=== PATIENT | female | born 1975 | race Two or more races ===

== ENCOUNTER 2023-12-20 09:45 | Outpatient (AMB) | payer MEDICAID, SELFPAY ==
[2023-12-20 10:10] VITALS: BP 148/81; PULSE 79; RESP 18; TEMP 36.2; O2SAT 95; BMI 37.8
--- NOTE | 2023-12-20 10:10 | ORTHONT_ITS ---
Vital signs 12/20/23 10:10 Height 1.6 m Height Method Stated Weight 96.785 kg Weight Measurement Method Standing Scale BMI 37.8 BP 148/81 H Blood Pressure Source Automatic Cuff Blood Pressure Location Right Upper Arm Position Sitting Respiration 18 Pulse 79 Pulse Source Monitor Temp 97.2 F Temp Source Temporal Artery Scan Pulse Oximetry (%) 95 Oxygen Delivery Method Room Air Med/Allergies Allergies & Medications Allergies No Known Allergies Allergy (Verified 12/20/23 10:11) Medication Reconciliation Unobtainable 08/23/23 [History Confirmed 12/20/23] Subjective Visit Visit for: follow up visit and knee Immunization / Flu Flu Vaccine in the Last 12 Months: No Flu Vaccine Exclusion Criteria: No Exclusion Criteria History of Present Illness Chief complaint: FOLLOW UP Date of injury / onset of symptoms: APRIL SYMPTOMS WORSEN Patient is a 48-year-old female with 4 years of right knee pain. She also has a history of a left unicompartmental total knee replacement with Dr. Moody. She still has persistent pain but the pain is improved somewhat with the surgery. She has had injections in her right knee as well as anti-inflammatories. She has also had hyaluronic acid injections Personal History Occupation: UNEMPLOYED Red flag PMH: none Pain Pain level (0-10): 8 Pain duration: ALL DAY Pain location: inside (medial), outside (lateral), anterior and posterior Pain quality: sharp, dull and aching Pain timing: increases with activity Associated signs & symptoms: stiffness Ambulatory data Ambulatory device: none Treatments Improvement with previous injections: No Improvement with PT: No Improvement with NSAIDS: n/a Review of Systems Review of Systems: All systems negative unless otherwise noted in HPI. Exam Exam Patient is in no acute distress and is cooperative with the examination today. Breathing is nonlabored. Patient has a normal mood and affect. Bilateral extremities were evaluated and demonstrates sensation intact to light touch. Palpable pedal pulses are present. No significant edema is present. Bilateral hips were examined. The patient has no pain with log roll of the hips. Internal rotation to 30 degrees and external rotation to 30 degrees is painless. Negative FADIR. Left knee demonstrates a midline incision. Knee feels stable varus and valgus are still to be translation. Range of motion 0 to 110 degrees The right knee was also examined. The right knee is in [varus] alignment. Range of motion from [0-115] degrees. Knee is stable to varus and valgus as well as AP translation with <5mm. Patient has a [negative] McMurrays. There is [no] pain wi th patellofemoral compression and [no] crepitus noted. The knee is [tender] to palpation [medially]. Right knee x-rays demonstrate complete joint space medially with varus arthritis and varus deformity. There are osteophytes present X-rays also demonstrate a unicompartmental arthroplasty. It is in varus. There is also lateral compartment arthritis Assessment and Plan Problem List (1) Degenerative arthritis of knee, bilateral: Status: Acute Plan: Patient is a 48-year-old female with bilateral knee pain and bilateral knee arthritis. X-rays from 4 years ago demonstrate severe arthritis of the right knee. She also has a unicompartmental knee With arthritis She has already tried injections, anti-inflammatories, but is not tried physical therapy. We discussed that we could try physical therapy for 1 round. If this does not work we will likely have to talk about surgery. I would do a total knee replacement not a year any given her prior history of DVTs and because she has diffuse pain in her knee (2) Bilateral knee pain: Status: Acute Office Procedures GNS Level of Care Nursing/Assessment Patient Status: Established Patient Nursing Assessment/Reassesment: Medication Reconciliation, Update PMH in EMR and Vital Signs Coordination of Care: Complex Care and Chronic Disease 1-5, Education Complex Pt/Fam, Consent,records obtained, informed consent, Results/Orders obtained and Staff clarify orders Special Needs: Language special needs Established Patient Charge Established Patient Point Assignment: 95 Established Patient Point Charge: EP Level 3 (80-115) Past Medical History Past Medical History Have you ever been diagnosed with any of the following: Neurological Problems Seizures: No Cardiology Problems Congestive Heart Failure: No Edema: No Cellulitis: No Hypertension: Yes (TAKES LISINOPRIL) Varicose Veins: Yes (non diagnosed) Respiratory Problems Chronic Obstructive Pulmonary Disease (COPD): No Tuberculosis: No Pulmonary Embolism: No Sleep Apnea: No Smoking: No Smoking Exposure: No Tobacco Use: No Clubbing: No Exposure to Respiratory Irritants: No Intubation: No Stomache/Intestinal Problems Hepatitis: No Genital/Urinary Problems Renal Disease: No Reproductive Problems Pelvic Inflammatory Disease: No Previous Pregnancies: Yes (X 5) Musculoskeletal Problems Arthritis: Yes Endocrine Problems Diabetes Mellitus Type 1: No Diabetes Mellitus Type 2: No Hypothyroidism: Yes (TAKES LEVOTHYROXINE) Blood Problems Anemia: No Leukemia: No Hemophilia: No Thalassemia: No Sickle Cell Disease: No Clotting Problems: No Other Problems Hospitalization: No Shingles: No Falls: No Blood Transfusions: No Blood Transfusion Reaction: No Anesthesia Reactions: No Organ Transplant: No Chemotherapy: No Radiation Therapy: No MRSA: No Chicken Pox: Yes Cancer: No Surgical History Pacemaker: No
== END 2023-12-20 10:30 | disposition home or self-care (01) ==
LOC: HODSRG 09:45
PROVIDERS: PCP Nurse Practitioner Family; Referring Provider Nurse Practitioner Family; Supervising Provider Orthopaedic Surgery Adult Reconstructive Orthopaedic Surgery; Visit Provider Orthopaedic Surgery Adult Reconstructive Orthopaedic Surgery
DX: M17.0 Bilateral primary osteoarthritis of knee (principal); M25.561 Pain in right knee; M25.562 Pain in left knee; Z86.718 Personal history of other venous thrombosis and embolism; I10 Essential (primary) hypertension
CPT/HCPCS: 99213; G0463

== ENCOUNTER 2024-07-05 08:53 | Outpatient (AMB) | payer MEDICAID, SELFPAY ==
[2024-07-05 09:10] VITALS: BP 134/84; PULSE 76; RESP 18; TEMP 36.3; O2SAT 96; BMI 37.3
--- NOTE | 2024-07-05 09:10 | ORTHONT_ITS ---
Vital signs 07/05/24 09:10 Height 1.6 m Height Method Stated Weight 95.453 kg Weight Measurement Method Standing Scale BMI 37.3 BP 134/84 H Blood Pressure Source Automatic Cuff Blood Pressure Location Right Upper Arm Position Sitting Respiration 18 Pulse 76 Pulse Source Monitor Temp 97.3 F Temp Source Temporal Artery Scan Pulse Oximetry (%) 96 Oxygen Delivery Method Room Air Med/Allergies Allergies & Medications Allergies No Known Allergies Allergy (Verified 07/05/24 09:11) Medication Reconciliation Unobtainable 08/23/23 [History Confirmed 07/05/24] Exam Exam Patient is in no acute distress and is cooperative with the examination today. Breathing is nonlabored. Patient has a normal mood and affect. Bilateral extremities were evaluated and demonstrates sensation intact to light touch. Palpable pedal pulses are present. No significant edema is present. Bilateral hips were examined. The patient has no pain with log roll of the hips. Internal rotation to 30 degrees and external rotation to 30 degrees is painless. Negative FADIR. Left knee demonstrates a midline incision. Knee feels stable varus and valgus are still to be translation. Range of motion 0 to 110 degrees The right knee was also examined. The right knee is in [varus] alignment. Range of motion from [0-115] degrees. Knee is stable to varus and valgus as well as AP translation with <5mm. Patient has a [negative] McMurrays. There is [no] pain with patellofemoral compression and [no] crepitus noted. The knee is [tender] to palpation [medially]. Right knee x-rays demonstrate complete joint space medially with varus arthritis and varus deformity. There are osteophytes present X-rays also demonstrate a unicompartmental arthroplasty. It is in varus. There is also lateral compartment arthritis Assessment and Plan Problem List (1) Degenerative arthritis of knee, bilateral: Status: Acute Plan: Patient is a 48-year-old female with bilateral knee pain and bilateral knee arth ritis. X-rays from 4 years ago demonstrate severe arthritis of the right knee. She has failed significant conservative treatment occluding injections, anti- inflammatories, and physical therapy. We thus discussed total knee replacement as a reasonable option The nature and purpose of the total knee replacement, alternative method(s) of treatment, the material risks involved, and the possibility of complications were fully explained to the patient. The patient does NOT have any of the following contraindications to TKA: - Active infection of the knee joint, OR - Active systemic bacteremia, OR - Active skin infection or open wound at surgical site, OR - Neuropathic arthritis, OR - Severe, rapidly progressive neurological disease, OR - Severe medical condition that makes risks of surgery outweigh the potential benefit The patient was told the most common risks and complications associated with a total knee replacement include, but are not limited to: blood clots in the leg, fatal pulmonary embolism, dislocation of the prosthesis, intraoperative and postoperative fractures of the femur or tibia, infection, failure of the prosthesis or grafting materials, complications from anesthesia, reactions to blood transfusions, postoperative leg length inequality, instability of the knee replacement, nerve damage or injury, vascular injury, delayed wound healing, infection, other injury or even . In addition, there are risks associated with anesthesia given during this operation. Also, the patient was told that after undergoing a total knee replacement there may still be persistent pain or disability. The patient was informed that the success of this operation in part depends upon the mechanical devices which are going to be implanted and that these devices can fail or malfunction, and may need to be repaired or replaced and there are no guarantees as to the longevity of this device or its parts and that it or its parts could fail prematurely. The patient was also notified that during the course of surgery, there may be a need to use bone graft from donors, and that any bone graft used will be carefully screened for communicable diseases, including AIDS, hepatitis, Noah-Creutzfeldt, or other diseases, but despite the screening procedures, there is a small chance that they could contract one of these diseases. Finally, the patient was asked to follow completely and fully with all advice and recommended treatments, and that recovery and ultimate outcome are affected by their compliance with recommended treatment. We discussed the risks, benefits and treatment alternatives, and the patient is interested in proceeding with surgery. We will try to set this up as expeditiously as possible. 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 ) Established Patient Charge Established Patient Point Assignment: 90 Established Patient Point Charge: EP Level 3 (80-115) MA Intake Visit Data Collection New Patient or Established: Established Patient (seen at [facility] within 3 years) Reason for Visit:: LEFT KNEE PAIN Seen by Clinical Staff ONLY (RN/MA): No J2E[employer] Application Developer Required: Yes PCP or OBGYN visit in last 3 months: Yes Hx Now: No Do You Feel Safe at Home: Yes Authorities Contacted: N/A Questionairres Past Medical History Past Medical History Have you ever been diagnosed with any of the following: Neurological Problems Seizures: No Cardiology Problems Congestive Heart Failure: No Edema: No Cellulitis: No Hypertension: Yes (TAKES LISINOPRIL) Varicose Veins: Yes (non diagnosed) Respiratory Problems Chronic Obstructive Pulmonary Disease (COPD): No Tuberculosis: No Pulmonary Embolism: No Sleep Apnea: No Smoking: No Smoking Exposure: No Tobacco Use: No Clubbing: No Exposure to Respiratory Irritants: No Intubation: No Stomache/Intestinal Problems Hepatitis: No Genital/Urinary Problems Renal Disease: No Reproductive Problems Pelvic Inflammatory Disease: No Previous Pregnancies: Yes (X 5) Musculoskeletal Problems Arthritis: Yes Endocrine Problems Diabetes Mellitus Type 1: No Diabetes Mellitus Type 2: No Hypothyroidism: Yes (TAKES LEVOTHYROXINE) Blood Problems Anemia: No Leukemia: No Hemophilia: No Thalassemia: No Sickle Cell Disease: No Clotting Problems: No Other Problems Hospitalization: No Shingles: No Falls: No Blood Transfusions: No Blood Transfusion Reaction: No Anesthesia Reactions: No Organ Transplant: No Chemotherapy: No Radiation Therapy: No MRSA: No Chicken Pox: Yes Cancer: No Surgical History Pacemaker: No Subjective Visit Visit for: follow up visit and knee (LEFT KNEE) Immunization / Flu Flu Vaccine in the Last 12 Months: No Flu Vaccine Exclusion Criteria: Refused by Patient History of Present Illness Chief complaint: right knee pain Patient is a 48-year-old female with 4 years of right knee pain. She also has a history of a left unicompartmental total knee replacement with Dr. Moody. She still has persistent pain but the pain is improved somewhat with the surgery. She has had injections in her right knee as well as anti-inflammatories. She has also had hyaluronic acid injections. I have not seen her in 6 months and she reports the right knee pain is miserable. She has failed conservative treatment including weight loss, injections, and anti-inflammatories. Her surgery was previously postponed as she had to get workup for her liver. She was found to have fatty liver disease. She has no history of blood clots in the leg. Personal History Red flag PMH: none Pain Pain level (0-10): 7 Pain duration: 1 YEAR Pain location: anterior Pain quality: burning and tingling Pain timing: night and increases with activity Associated signs & symptoms: stiffness Ambulatory data Ambulatory device: none Walking distance (minutes): 1 Treatments Number of previous injections: 6 Improvement with previous injections: No Number of Physical Therapy sessions: 0 Improvement with NSAIDS: n/a Review of Systems Review of Systems: All systems negative unless otherwise noted in HPI.
== END 2024-07-05 09:28 | disposition home or self-care (01) ==
PROVIDERS: PCP Nurse Practitioner Family; Referring Provider Nurse Practitioner Family; Supervising Provider Orthopaedic Surgery Adult Reconstructive Orthopaedic Surgery; Visit Provider Orthopaedic Surgery Adult Reconstructive Orthopaedic Surgery
DX: M17.0 Bilateral primary osteoarthritis of knee (principal); M25.561 Pain in right knee; M25.562 Pain in left knee; I10 Essential (primary) hypertension; E03.9 Hypothyroidism, unspecified; K76.0 Fatty (change of) liver, not elsewhere classified
CPT/HCPCS: 99213; G0463

== ENCOUNTER → 2024-08-02 | Outpatient (CLI) | payer MEDICAID, SELFPAY ==
[2024-08-02 16:26] LABS: HCG Qualitative,Urine Negative
== END | disposition home or self-care (01) ==
PROVIDERS: PCP Nurse Practitioner Family; Referring Provider Orthopaedic Surgery Adult Reconstructive Orthopaedic Surgery; Visit Provider Orthopaedic Surgery Adult Reconstructive Orthopaedic Surgery
DX: Z32.00 Encounter for pregnancy test, result unknown (principal)
CPT/HCPCS: 81025

== ENCOUNTER → 2024-08-03 | Outpatient (CLI) | payer MEDICAID, SELFPAY ==
--- NOTE | 2024-08-03 10:31 | XR_ITS ---
Examination: CT right lower extremity, without contrast. 2-D sagittal reconstructions. 2-D coronal reconstructions. 3-D reconstructions. Date and time of exam:August 03, 2024 1049 hours INDICATIONS: Diagnosis right knee unilateral osteoarthritis, right knee pain several years CTDI: vol (mGy):32.28 DLP: (mGycm):1085 Technique: Multiple 1.25 mm axial sections of the right lower extremity without intravenous contrast have been obtained. 2-D sagittal and coronal reconstructions have been obtained. 3-D reconstructions have been obtained. Low dose protocols were performed. One or more of the following dose reduction techniques were used; automated exposure control, adjustment of the mA and/or KV according to patient size, use of iterative reconstruction technique. Findings: Moderate osteopenia Moderate narrowing hip joints bilaterally Severe narrowing medial joint space right knee Significant osteoarthritis lateral patellofemoral joints No fractures IMPRESSION: Severe narrowing medial joint space right knee Significant osteoarthritis lateral patellofemoral joints right knee
== END | disposition home or self-care (01) ==
PROVIDERS: PCP Nurse Practitioner Family; Referring Provider Orthopaedic Surgery Adult Reconstructive Orthopaedic Surgery; Visit Provider Orthopaedic Surgery Adult Reconstructive Orthopaedic Surgery
DX: M17.11 Unilateral primary osteoarthritis, right knee (principal)
CPT/HCPCS: 73700

== ENCOUNTER 2024-08-13 05:35 | Day surgery (SDC) | payer MEDICAID, SELFPAY ==
[2024-08-10 09:49] VITALS: BMI 37.3
[2024-08-10 10:59] LABS: Basophils # (Auto) 0.1 Thou/mm3 (0.0-0.2); Basophils % (Auto) 1 % (0-2.5); Eosinophils # (Auto) 0.3 Thou/mm3 (0.0-0.5); Eosinophils % (Auto) 3 % (0-10); HCG Qualitative,Urine Negative; Hematocrit 39.4 % (36.0-46.0); Hemoglobin 13.1 g/dL (12.0-16.0); Immature Granulocytes % (Auto) 1 % (0-0); Immature Granulocytes Auto 0.05 Thou/mm3 (0.00-0.00); Lymphocytes # (Auto) 2.3 Thou/mm3 (1.0-4.8); Lymphocytes % (Auto) 24 % (10-50); Mean Corpuscular HGB Conc 33.2 g/dl (31.0-37.0); Mean Corpuscular Hemoglobin 28.1 pg (25.0-35.0); Mean Corpuscular Volume 85 fL (80-100); Monocytes # (Auto) 0.8 Thou/mm3 (0.0-0.8); Monocytes % (Auto) 8 % (0-12); Neutrophils # (Auto) 6.1 Thou/mm3 (1.8-7.7); Neutrophils % (Auto) 63 % (37-80); Nucleated Red Blood Cell % 0 /100 WBC (0); Platelet Count 318 Thou/mm3 (140-440); RDW Standard Deviation 42.8 fL (36.4-46.3); Red Blood Count 4.66 Miln/mm3 (4.00-5.20); White Blood Count 9.6 Thou/mm3 (3.6-11.0)
[2024-08-10 11:08] LABS: Partial Thromboplastin Time 26.4 Seconds (22.0-36.0); Prothrombin Time 11.2 Seconds (9.0-12.2)
[2024-08-10 11:11] LABS: Alanine Aminotransferase 56 U/L (10-49); Albumin, Serum 4.6 gm/dL (3.5-5.0); Albumin/Globulin Ratio 1.8 (1.2-2.2); Alkaline Phosphatase 59 U/L (46-116); Anion Gap 6 (7-16); Aspartate Amino Transferase 46 U/L (0-34); BUN/Creatinine Ratio 19 Ratio (12-20); Bilirubin,Total 0.6 mg/dL (0.3-1.2); Blood Urea Nitrogen 13 mg/dL (9-23); Calcium 9.2 mg/dL (8.3-10.6); Calcium (Corrected) 9.2 mg/dL (8.5-10.1); Carbon Dioxide 28.6 mMol/L (20.0-31.0); Chloride 103 mMol/L (98-107); Creatinine (Component) 0.7 mg/dL (0.6-1.3); Estimated Creatinine Clearance 104.6 mL/min (>60); Globulin 2.5 gm/dL (2.3-3.5); Glucose 139 mg/dL (74-106); Osmolality,Calculated 277 (275-295); Potassium 4.1 mMol/L (3.4-5.1); Sodium 138 mMol/L (136-145); Total Protein 7.1 gm/dL (5.7-8.2); eGFR > 60 See Note
[2024-08-13] VITALS (16 sets, daily range): BP systolic 123–155; BP diastolic 49–90; PULSE 70–93; RESP 12–19; TEMP 36.2–36.9; O2SAT 93–100; BMI 37.6; BMI 13.0
[2024-08-13] MEDS: PREGABALIN 75 MG CAPSULE PO (06:32)
[2024-08-13] MEDS: ACETAMINOPHEN 325 MG TABLET 650 MG PO (06:32)
[2024-08-13] MEDS: RINGERS LACTATED 1000 ML 1,000 ML 20 ML IV (06:33)
[2024-08-13] MEDS: MELOXICAM 7.5 MG TABLET PO (06:33)
--- NOTE | 2024-08-13 07:30 | SUR.PREOP ---
Patient expressed gratitude for prayer before their procedure.
--- NOTE | 2024-08-13 09:18 | XR_ITS ---
Examination: Right knee 2 views Technique : AP lateral right knee 2 views Date and time: August 13, 2024 1026 hours INDICATIONS: Postop knee replacement FINDINGS: Total right knee arthroplasty. Satisfactory alignment Moderate osteopenia IMPRESSION: Total right knee arthroplasty with satisfactory alignment
--- NOTE | 2024-08-13 09:19 | ESOP_ITS ---
Date of Procedure 08/13/24 Pre Op Diagnosis right knee osteoarthritis Post Op Diagnosis right knee osteoarthritis Procedure right total knee replacement wilfrido Findings full thickness cartilage loss and osteophytes Procedure Description Indication: The patient is a 49 year old who has a long history of right knee pain. X-rays show degenerative arthritis involving the knee. Over the past several years the patient has had increasing pain, progressive limitation in function. He has failed conservative measures including activity modification, physical therapy, injections, anti-inflammatories, and assistive devices. After a lengthy discussion of the risks and benefits, the patient presents now for total knee replacement. The nature and purpose of the total knee replacement, alternative method(s) of treatment, the material risks involved, and the possibility of complications were fully explained to the patient. The patient was told the most common risks and complications associated with a total knee replacement include, but are not limited to blood clots in the leg, fatal pulmonary embolism, dislocation of the prosthesis, intraoperative and postoperative fractures of the femur or tibia, infection, failure of the prosthesis or grafting materials, complications from anesthesia, reactions to blood transfusions, postoperative leg length inequality, instability of the knee replacement, nerve damage or injury, vascular injury, delayed wound healing, infections, other injury or even . In addition, there are risks associated with anesthesia given during this operation, temporary or permanent numbness on the skin lateral to the incision can be a complication unique to total knee surgery, and kneeling can be painful after knee replacement surgery. Also, the patient was told that after undergoing a total knee replacement there may still be pain or disability. We discussed with the patient that we will be using a robot-assisted technology. We discussed that there is a possibility of converting to manual instrumentation. The patient was informed that the success of this operation in part depends upon the mechanical devices which are going to be implanted and that these devices can fail or malfunction, and may need to be repaired or replaced and there are no guarantees as to the longevity of this device or its part and that it or its parts could fail prematurely. Finally, the patient was asked to follow completely and fully with all advice and recommended treatments, and that recovery and ultimate outcome are affected by their compliance with recommended treatment. Surgical technique: Patient was marked and consented in the pre-operative area. The patient was brought to the operating room and placed on the operating table in a supine position. Prior to positioning, a timeout procedure was performed between the surgeon, the anesthesiologist, and the nursing staff where the patient and the operative side were identified and confirmed. After adequate general anesthetic was obtained, the right lower extremity was prepped and draped in the usual sterile fashion. A weight based dose of Cefazolin were administered within 1 hour prior to incision. The robot was preregistered and calirated before the incision. The extremity was exsanguinated with an esmarch badge and tourniquet inflated to 250mmHg. A midline incision was made. A median parapatellar arthrotomy was made. The patella was subluxed laterally. A medial release was performed to expose the medial tibia. His femoral and tibial pins were placed through an intra incisional manner for both cases. Every effort was made to ensure that the distalmost aspect of the pin was hung in the second cortex. The arrays were then tightened several times to ensure that it was fixed for the remainder of the case. Both femoral and tibial checkpoints were then placed. We then went through the registration process of the bone. We then assessed the knee deformity and attempted to correct it. We also used the robot to aid in judging laxity in both extension and flexion. Final based on laxity and alignment we changed the preoperative assessment to obtain proper proper implant positioning and to correct deformity. Attention was then placed to the tibia. We made a tibial cut using the robot ensuring that both the MCL and the patella tendon were protected with retractors. We then went to the femur and made the posterior cut followed by the anterior cut and the anterior chamfer. The bone was then removed and we made a distal femur cut and a posterior chamfer cut. We verified all cuts. A trial reduction was performed with a size 4 femoral component and a size 3 keeled tibial component. The patella tracked centrally, and no lateral retinacular release was necessary. The trial implants were removed. The arrays, pins, and checkpoints were all removed. We performed a verification that all pins were removed. The cut bone surfaces were lavaged. A size 4 right femoral component, a size 3 keeled tibial component were impacted into position. The knee was felt to be well balanced in the sagittal and coronal plane. The final 3x10 mm cruciate- substituting articular insert was impacted into the tibial tray. The knee was brought out to full extension, flexed up to 120 degrees. It was stable to varus and valgus stress and appropriately balanced in flexion and extension. The wounds were copiously irrigated following deflation of tourniquet. The medial retinaculum was reapproximated with #1 vicryl and quill. The subcutaneous tissues were closed with 0 and 2-0 interrupted Vicryl. The skin was closed with 3-0 Monofilament V loc suture. A sterile dressing was applied. The patient was transferred to a bed and brought to recovery in stable condition. The patient tolerated the procedure well. There were no intraoperative complications. Sponge and needle counts were correct times 2. As the attending surgeon, Maritza mitchell I was present and performed the entire operation. Grafts/Implants Size 4 CR Femur Size 3 Tibia 10mm poly CS Anesthesia spinal Implants vira Pathology / specimen None Pathology comment: none Estimated Blood Loss 150 Condition Stable Disposition same day Surgeon Olayinka Galloway MD Surgical Staff Operation Date: 08/13/24 07:30 Case Staff LIFE MANAGEMENT TEACHER: Angel Byers RNglass finisher: Maya Hector
--- NOTE | 2024-08-13 09:40 | SUR.PHASEI ---
0940: Pt. AAOx4, vitals stable, breathing unlabored, complaint of pain, no complaint of nausea, dressing to right knee CDI, no active bleed noted, bilateral dorsalis pedis pulses strong and regular, cap refill to bilateral feet less than 3 seconds, pt. able to wiggle bilateral feet, report received from Jorge RAMIRES and Angel BRITT.
[2024-08-13] MEDS: HYDROmorphone INJ 2 MG/ML VIAL 0.5 MG IVP (09:47)
[2024-08-13] MEDS: CYCLObenzaPRINE 5 MG TABLET 10 MG PO (10:03)
[2024-08-13] MEDS: oxyCODONE HCL 5 MG IR TAB PO (10:03)
--- NOTE | 2024-08-13 12:10 | SUR.PHASEII ---
1210: Report given to Jenni RN, Pt. AAOx4, vitals stable, breathing unlabored, no complaint of pain or nausea, dressing to right knee CDI, no active bleed noted.
--- NOTE | 2024-08-13 12:16 | SUR.PHASEII ---
1215 Awake , resting comfortably, no complaints, no s/s of distress noted right lower extremity dressing clean, dry and intact. Vitals stable with continue to monitor pt vital signs and status.
--- NOTE | 2024-08-13 12:44 | SUR.PHASEII ---
1244: Report received from Jenni RAMIRES, no new changes.
--- NOTE | 2024-08-13 13:40 | SUR.PHASEII ---
1340: Pt. AAOx4, vitals stable, breathing unlabored, no complaint of pain or nausea, dressing to right knee CDI, no active bleed noted, pt. able to move bilateral legs, cap refill to bilateral feet less than 3 seconds, cap refill to bilateral feet less than 3 seconds, pt. ambulated with PT well, tolerated well, pt. tolerated sips of water well, gave discharge instructions to the pt. and her ride, both verbalized understanding and had no further questions. Pt. left with all personal belongings.
== END 2024-08-13 13:40 | disposition home or self-care (01) ==
PROVIDERS: Anesthesiology; PCP Nurse Practitioner Family; Referring Provider Orthopaedic Surgery Adult Reconstructive Orthopaedic Surgery; Visit Provider Orthopaedic Surgery Adult Reconstructive Orthopaedic Surgery
PROC: (CPT 27447; principal; 2024-08-13 07:30)
DX: M17.11 Unilateral primary osteoarthritis, right knee (principal); M25.761 Osteophyte, right knee
CPT/HCPCS: 27447; 20985; 36415; 73560; 80053; 81025; 85025; 85610; 85730; 97162; A4217; C1713; C1776; J1171; J2250; J2371; J2704; J3010; J3490; J7120; J7999; A4648; A4649; A9270

== ENCOUNTER 2024-08-30 13:37 | Outpatient (AMB) | payer MEDICAID, SELFPAY ==
--- NOTE | 2024-08-30 14:14 | PD.ORTHCLVIS ---
Vital signs 08/30/24 14:16 Height 1.6 m Height Method Stated Weight 92.788 kg Weight Measurement Method Standing Scale BMI 36.2 BP 123/75 Blood Pressure Source Automatic Cuff Blood Pressure Location Left Upper Arm Position Sitting Respiration 18 Pulse 104 H Pulse Source Monitor Temp 97.2 F Temp Source Temporal Artery Scan Pulse Oximetry (%) 96 Oxygen Delivery Method Room Air Med/Allergies Allergies & Medications Allergies No Known Allergies Allergy (Verified 08/30/24 14:17) Medication Reconciliation atorvastatin 10 mg tablet 10 mg PO QPM 08/10/24 [History Confirmed 08/30/24] baclofen 5 mg tablet 5 mg PO QDAY 08/10/24 [History Confirmed 08/30/24] levothyroxine 150 mcg capsule 150 mcg PO QDAY 08/10/24 [History Confirmed 08/30/24] lisinopril 20 mg tablet 20 mg PO QDAY 08/10/24 [History Confirmed 08/30/24] metformin 500 mg tablet 500 mg PO BID 08/10/24 [History Confirmed 08/30/24] aspirin 81 mg tablet,delayed release 81 mg PO BID #60 tabs 08/13/24 [Rx Confirmed 08/30/24] doxycycline hyclate 100 mg tablet 100 mg PO BID #14 tabs 08/13/24 [Rx Confirmed 08/30/24] gabapentin 300 mg capsule 300 mg PO .qhs #30 caps 08/13/24 [Rx Confirmed 08/30/24] sennosides 8.6 mg-docusate sodium 50 mg tablet (Senna-S) 1 tab-cap PO QDAY #30 tabs 08/13/24 [Rx Confirmed 08/30/24] acetaminophen 500 mg tablet (Acetaminophen Extra Strength) 1,000 mg (2 x 500 mg) PO Q6H PRN pain #90 tabs 08/30/24 [Rx] oxycodone 5 mg tablet 5 mg PO Q6H PRN pain #28 tabs 08/30/24 [Rx] Assessment and Plan Problem List (1) Degenerative arthritis of knee, bilateral: Status: Acute (2) Bilateral knee pain: Status: Acute Office Procedures GNS Level of Care Nursing/Assessment Patient Status: Established Patient Nursing Assessment/Reassesment: Medication Reconciliation, Update PMH in EMR and Vital Signs Coordination of Care: Complex Care and Chronic Disease 1-5, Education Complex Pt/Fam, Consent,records obtained, informed consent, Results/Orders obtained and Staff clarify orders Special Needs: Language special needs Established Patient Charge Established Patient Point Assignment: 95 Established Patient Point Charge: EP Level 3 (80-115) MA Intake Visit Data Collection New Patient or Established: Established Patient (seen at [facility] within 3 years) Reason for Visit:: 2 week tka fu Seen by Clinical Staff ONLY (RN/MA): No 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 PCP or OBGYN visit in last 3 months: Yes Hx Now: No Do You Feel Safe at Home: Yes Authorities Contacted: N/A Questionairres Past Medical History Past Medical History Have you ever been diagnosed with any of the following: Neurological Problems Seizures: No Cardiology Problems Hypercholesterolemia: Yes Congestive Heart Failure: No Edema: No Cellulitis: No Hypertension: Yes (TAKES LISINOPRIL) Varicose Veins: Yes (non diagnosed) Respiratory Problems Chronic Obstructive Pulmonary Disease (COPD): No Tuberculosis: No Pulmonary Embolism: No Sleep Apnea: No Smoking: No Smoking Exposure: No Tobacco Use: No Clubbing: No Exposure to Respiratory Irritants: No Intubation: No Stomache/Intestinal Problems Hepatitis: No Genital/Urinary Problems Renal Disease: No Reproductive Problems Pelvic Inflammatory Disease: No Previous Pregnancies: Yes (X 5) Musculoskeletal Problems Arthritis: Yes Endocrine Problems Diabetes Mellitus Type 1: No Diabetes Mellitus Type 2: Yes Hypothyroidism: Yes (TAKES LEVOTHYROXINE) Blood Problems Anemia: No Leukemia: No Hemophilia: No Thalassemia: No Sickle Cell Disease: No Clotting Problems: No Other Problems Hospitalization: No Shingles: No Falls: No Blood Transfusions: No Blood Transfusion Reaction: No Anesthesia Reactions: No Organ Transplant: No Chemotherapy: No Radiation Therapy: No MRSA: No Chicken Pox: Yes Cancer: No Surgical History Pacemaker: No Subjective Visit Visit for: follow up visit and knee (LEFT KNEE) Immunization / Flu Flu Vaccine in the Last 12 Months: No Flu Vaccine Exclusion Criteria: Refused by Patient History of Present Illness Chief complaint: right knee pain Personal History Red flag PMH: none Pain Pain level (0-10): 7 Pain duration: 1 YEAR Pain location: anterior Pain quality: burning and tingling Pain timing: night and increases with activity Associated signs & symptoms: stiffness Ambulatory data Ambulatory device: none Walking distance (minutes): 1 Treatments Number of previous injections: 6 Improvement with previous injections: No Number of Physical Therapy sessions: 0 Improvement with NSAIDS: n/a Review of Systems Review of Systems: All systems negative unless otherwise noted in HPI.
[2024-08-30 14:16] VITALS: BP 123/75; PULSE 104; RESP 18; TEMP 36.2; O2SAT 96; BMI 36.2
== END 2024-08-30 14:39 | disposition home or self-care (01) ==
LOC: HODSRG 13:37
PROVIDERS: PCP Nurse Practitioner Family; Referring Provider Nurse Practitioner Family; Supervising Provider Orthopaedic Surgery Adult Reconstructive Orthopaedic Surgery; Visit Provider Orthopaedic Surgery Adult Reconstructive Orthopaedic Surgery
DX: M17.0 Bilateral primary osteoarthritis of knee (principal); M25.562 Pain in left knee; M25.561 Pain in right knee; I10 Essential (primary) hypertension; E78.00 Pure hypercholesterolemia, unspecified; E03.9 Hypothyroidism, unspecified
CPT/HCPCS: 99213; G0463

== ENCOUNTER 2024-09-25 13:39 | Outpatient (AMB) | payer MEDICAID, SELFPAY ==
[2024-09-25 14:12] VITALS: BP 132/71; PULSE 104; RESP 20; TEMP 36.4; O2SAT 98; BMI 35.6
--- NOTE | 2024-09-25 14:12 | ORTHONT_ITS ---
Vital signs 09/25/24 14:12 Height 1.6 m Height Method Measured Weight 91.399 kg Weight Measurement Method Standing Scale BMI 35.6 BP 132/71 H Blood Pressure Source Automatic Cuff Blood Pressure Location Left Upper Arm Position Sitting Respiration 20 Pulse 104 H Pulse Source Monitor Temp 97.6 F Temp Source Temporal Artery Scan Pulse Oximetry (%) 98 Oxygen Delivery Method Room Air Med/Allergies Allergies & Medications Allergies No Known Allergies Allergy (Verified 09/25/24 14:13) Medication Reconciliation atorvastatin 10 mg tablet 10 mg PO QPM 08/10/24 [History Confirmed 09/25/24] baclofen 5 mg tablet 5 mg PO QDAY 08/10/24 [History Confirmed 09/25/24] levothyroxine 150 mcg capsule 150 mcg PO QDAY 08/10/24 [History Confirmed 09/25/24] lisinopril 20 mg tablet 20 mg PO QDAY 08/10/24 [History Confirmed 09/25/24] metformin 500 mg tablet 500 mg PO BID 08/10/24 [History Confirmed 09/25/24] aspirin 81 mg tablet,delayed release 81 mg PO BID #60 tabs 08/13/24 [Rx Confirmed 09/25/24] doxycycline hyclate 100 mg tablet 100 mg PO BID #14 tabs 08/13/24 [Rx Confirmed 09/25/24] gabapentin 300 mg capsule 300 mg PO .qhs #30 caps 08/13/24 [Rx Confirmed 09/25/24] sennosides 8.6 mg-docusate sodium 50 mg tablet (Senna-S) 1 tab-cap PO QDAY #30 tabs 08/13/24 [Rx Confirmed 09/25/24] acetaminophen 500 mg tablet (Acetaminophen Extra Strength) 1,000 mg (2 x 500 mg) PO Q6H PRN pain #90 tabs 08/30/24 [Rx Confirmed 09/25/24] cyclobenzaprine 5 mg tablet 5 mg PO TID PRN muscle spasm #45 tabs 09/25/24 [Rx] oxycodone 5 mg tablet 5 mg PO Q6H PRN pain #28 tabs 09/25/24 [Rx] Exam Exam Patient is in no acute distress and is cooperative with the examination today. Breathing is nonlabored. Patient has a normal mood and affect. Bilateral extremities were evaluated and demonstrates sensation intact to light touch. Palpable pedal pulses are present. No significant edema is present. Bilateral hips were examined. The patient has no pain with log roll of the hips. Internal rotation to 30 degrees and external rotation to 30 degrees is painless. Negative FADIR. Left knee demonstrates a midline incision. Knee feels stable varus and valgus are still to be translation. Range of motion 0 to 110 degrees Right knee incision is c/d/i/ ROM 0-110 Assessment and Plan Problem List (1) Degenerative arthritis of knee, bilateral: Status: Acute (2) Bilateral knee pain: Status: Acute Plan: Patient is a 49yo male s/p L TKA> She is doing well. Pain continues to improve and she is happy. We will get xrays and see her in 6 weeks. - f/u in 6 weeks Office Procedures GNS Level of Care Nursing/Assessment Patient Status: Established Patient Nursing Assessment/Reassesment: Medication Reconciliation, Update PMH in EMR and Vital Signs Coordination of Care: Complex Care and Chronic Disease 1-5, Education Complex Pt/Fam, Consent,records obtained, informed consent, Results/Orders obtained and Staff clarify orders Special Needs: Language special needs Established Patient Charge Established Patient Point Assignment: 95 Established Patient Point Charge: EP Level 3 (80-115) MA Intake Visit Data Collection New Patient or Established: Established Patient (seen at [facility] within 3 years) Reason for Visit:: 6 WK F/U POST OP Seen by Clinical Staff ONLY (RN/MA): No Social Security Specialist Required: Yes PCP or OBGYN visit in last 3 months: Yes Hx Now: No Do You Feel Safe at Home: Yes Authorities Contacted: N/A Questionairres Past Medical History Past Medical History Have you ever been diagnosed with any of the following: Neurological Problems Seizures: No Cardiology Problems Hypercholesterolemia: Yes Congestive Heart Failure: No Edema: No Cellulitis: No Hypertension: Yes (TAKES LISINOPRIL) Varicose Veins: Yes (non diagnosed) Respiratory Problems Chronic Obstructive Pulmonary Disease (COPD): No Tuberculosis: No Pulmonary Embolism: No Sleep Apnea: No Smoking: No Smoking Cessation Counseling: No Smoking Exposure: No Tobacco Use: No Clubbing: No Exposure to Respiratory Irritants: No Intubation: No Stomache/Intestinal Problems Hepatitis: No Genital/Urinary Problems Renal Disease: No Reproductive Problems Pelvic Inflammatory Disease: No Previous Pregnancies: Yes (X 5) Musculoskeletal Problems Arthritis: Yes Endocrine Problems Diabetes Mellitus Type 1: No Diabetes Mellitus Type 2: Yes Hypothyroidism: Yes (TAKES LEVOTHYROXINE) Blood Problems Anemia: No Leukemia: No Hemophilia: No Thalassemia: No Sickle Cell Disease: No Clotting Problems: No Other Problems Hospitalization: No Shingles: No Falls: No Blood Transfusions: No Blood Transfusion Reaction: No Anesthesia Reactions: No Organ Transplant: No Chemotherapy: No Radiation Therapy: No MRSA: No Chicken Pox: Yes Cancer: No Surgical History Pacemaker: No Subjective Visit Visit for: follow up visit and knee (LEFT KNEE) Immunization / Flu Flu Vaccine in the Last 12 Months: No Flu Vaccine Exclusion Criteria: Refused by Patient History of Present Illness Chief complaint: right knee pain Patient is 6 weeks s/p R TKA. She is oding well. Personal History Red flag PMH: none Pain Pain level (0-10): 2 Pain duration: 1 YEAR Pain location: anterior Pain quality: burning and tingling Pain timing: night and increases with activity Associated signs & symptoms: stiffness Ambulatory data Ambulatory device: none Walking distance (minutes): 1 Treatments Number of previous injections: 6 Improvement with previous injections: No Number of Physical Therapy sessions: 0 Improvement with NSAIDS: n/a Review of Systems Review of Systems: All systems negative unless otherwise noted in HPI.
--- NOTE | 2024-09-25 14:42 | XR_ITS ---
Examination: Bilateral AP knees single view Right knee PA lateral axial 3 views TECHNIQUE: Bilateral AP knees standing single view Right knee PA standing flexion, standing lateral, axial right knee 3 views total 4 views Date and time: September 25, 2024 1451 hours INDICATIONS: Right knee surgery 6 weeks ago left knee surgery 3 years ago FINDINGS: Moderate osteopenia Total right knee arthroplasty with satisfactory alignment No loosening of the prosthetic components No patellar dislocation Left knee hemiarthroplasty with satisfactory alignment Moderate to advanced osteoarthritis lateral joint space left knee IMPRESSION: Total right knee arthroplasty with satisfactory alignment Left knee hemiarthroplasty with satisfactory alignment Moderate to advanced osteoarthritis lateral joint space left knee
== END 2024-09-25 14:42 | disposition home or self-care (01) ==
LOC: HODSRG 13:39
PROVIDERS: PCP Nurse Practitioner Family; Referring Provider Nurse Practitioner Family; Supervising Provider Orthopaedic Surgery Adult Reconstructive Orthopaedic Surgery; Visit Provider Orthopaedic Surgery Adult Reconstructive Orthopaedic Surgery
DX: M17.0 Bilateral primary osteoarthritis of knee (principal); M25.562 Pain in left knee; M25.561 Pain in right knee; Z96.652 Presence of left artificial knee joint; I10 Essential (primary) hypertension; E78.00 Pure hypercholesterolemia, unspecified; E03.9 Hypothyroidism, unspecified
CPT/HCPCS: 73564; 99213; G0463

== ENCOUNTER 2024-12-27 13:04 | Outpatient (AMB) | payer MEDICAID, SELFPAY ==
--- NOTE | 2024-12-27 13:22 | PD.ORTHCLVIS ---
Vital signs 12/27/24 13:23 Height 1.6 m Height Method Stated Weight 94.12 kg Weight Measurement Method Standing Scale BMI 36.7 BP 128/83 Blood Pressure Source Automatic Cuff Blood Pressure Location Left Upper Arm Position Sitting Respiration 18 Pulse 101 H Pulse Source Monitor Temp 97.8 F Temp Source Temporal Artery Scan Pulse Oximetry (%) 94 L Oxygen Delivery Method Room Air Med/Allergies Allergies & Medications Allergies No Known Allergies Allergy (Verified 12/27/24 13:28) Medication Reconciliation atorvastatin 10 mg tablet 10 mg PO QPM 08/10/24 [History Confirmed 12/27/24] baclofen 5 mg tablet 5 mg PO QDAY 08/10/24 [History Confirmed 12/27/24] levothyroxine 150 mcg capsule 150 mcg PO QDAY 08/10/24 [History Confirmed 12/27/24] lisinopril 20 mg tablet 20 mg PO QDAY 08/10/24 [History Confirmed 12/27/24] metformin 500 mg tablet 500 mg PO BID 08/10/24 [History Confirmed 12/27/24] aspirin 81 mg tablet,delayed release 81 mg PO BID #60 tabs 08/13/24 [Rx Confirmed 12/27/24] doxycycline hyclate 100 mg tablet 100 mg PO BID #14 tabs 08/13/24 [Rx Confirmed 12/27/24] gabapentin 300 mg capsule 300 mg PO .qhs #30 caps 08/13/24 [Rx Confirmed 12/27/24] sennosides 8.6 mg-docusate sodium 50 mg tablet (Senna-S) 1 tab-cap PO QDAY #30 tabs 08/13/24 [Rx Confirmed 12/27/24] acetaminophen 500 mg tablet (Acetaminophen Extra Strength) 1,000 mg (2 x 500 mg) PO Q6H PRN pain #90 tabs 08/30/24 [Rx Confirmed 12/27/24] cyclobenzaprine 5 mg tablet 5 mg PO TID PRN muscle spasm #45 tabs 09/25/24 [Rx Confirmed 12/27/24] oxycodone 5 mg tablet 5 mg PO Q6H PRN pain #28 tabs 09/25/24 [Rx Confirmed 12/27/24] Exam Exam Patient is in no acute distress and is cooperative with the examination today. Breathing is nonlabored. Patient has a normal mood and affect. Bilateral extremities were evaluated and demonstrates sensation intact to light touch. Palpable pedal pulses are present. No significant edema is present. Bilateral hips were examined. The patient has no pain with log roll of the hips. Internal rotation to 30 degrees and external rotation to 30 degrees is painless. Negative FADIR. Left knee demonstrates a midline incision. Knee feels stable varus and valgus are still to be translation. Range of motion 0 to 110 degrees Right knee incision is c/d/i/ ROM 0-110 Assessment and Plan Problem List (1) Degenerative arthritis of knee, bilateral: Status: Acute (2) Bilateral knee pain: Status: Acute Plan: Patient is a 49yo male s/p L TKA> She is doing well. Pain continues to improve and she is happy. We will get xrays and see her in 12 weeks. - f/u in 3 months Office Procedures GNS Level of Care Nursing/Assessment Patient Status: Established Patient Nursing Assessment/Reassesment: Medication Reconciliation, Update PMH in EMR and Vital Signs Coordination of Care: Complex Care and Chronic Disease 1-5, Education Complex Pt/Fam, Consent,records obtained, informed consent, Results/Orders obtained and Staff clarify orders Established Patient Charge Established Patient Point Assignment: 95 Established Patient Point Charge: EP Level 3 (80-115) MA Intake Visit Data Collection New Patient or Established: Established Patient (seen at [facility] within 3 years) Reason for Visit:: XRAY R TKA Seen by Clinical Staff ONLY (RN/MA): No 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 PCP or OBGYN visit in last 3 months: Yes Hx Now: No Do You Feel Safe at Home: Yes Authorities Contacted: N/A Questionairres Past Medical History Past Medical History Have you ever been diagnosed with any of the following: Neurological Problems Seizures: No Cardiology Problems Hypercholesterolemia: Yes Congestive Heart Failure: No Edema: No Cellulitis: No Hypertension: Yes (TAKES LISINOPRIL) Varicose Veins: Yes (non diagnosed) Respiratory Problems Chronic Obstructive Pulmonary Disease (COPD): No Tuberculosis: No Pulmonary Embolism: No Sleep Apnea: No Smoking: No Smoking Cessation Counseling: No Smoking Exposure: No Tobacco Use: No Clubbing: No Exposure to Respiratory Irritants: No Intubation: No Stomache/Intestinal Problems Hepatitis: No Genital/Urinary Problems Renal Disease: No Reproductive Problems Pelvic Inflammatory Disease: No Previous Pregnancies: Yes (X 5) Musculoskeletal Problems Arthritis: Yes Endocrine Problems Diabetes Mellitus Type 1: No Diabetes Mellitus Type 2: Yes Hypothyroidism: Yes (TAKES LEVOTHYROXINE) Blood Problems Anemia: No Leukemia: No Hemophilia: No Thalassemia: No Sickle Cell Disease: No Clotting Problems: No Other Problems Hospitalization: No Shingles: No Falls: No Blood Transfusions: No Blood Transfusion Reaction: No Anesthesia Reactions: No Organ Transplant: No Chemotherapy: No Radiation Therapy: No MRSA: No Chicken Pox: Yes Cancer: No Surgical History Pacemaker: No Subjective Visit Visit for: follow up visit and knee (LEFT KNEE) Immunization / Flu Flu Vaccine in the Last 12 Months: No Flu Vaccine Exclusion Criteria: Refused by Patient History of Present Illness Chief complaint: right knee pain Patient is 3 months s/p R TKA. She is doing well. Personal History Red flag PMH: none Pain Pain level (0-10): 2 Pain duration: 1 YEAR Pain location: anterior Pain quality: burning and tingling Pain timing: night and increases with activity Associated signs & symptoms: stiffness Ambulatory data Ambulatory device: none Walking distance (minutes): 1 Treatments Number of previous injections: 6 Improvement with previous injections: No Number of Physical Therapy sessions: 0 Improvement with NSAIDS: n/a Review of Systems Review of Systems: All systems negative unless otherwise noted in HPI.
[2024-12-27 13:23] VITALS: BP 128/83; PULSE 101; RESP 18; TEMP 36.6; O2SAT 94; BMI 36.7
== END 2024-12-27 13:37 | disposition home or self-care (01) ==
PROVIDERS: PCP Nurse Practitioner Family; Referring Provider Nurse Practitioner Family; Supervising Provider Orthopaedic Surgery Adult Reconstructive Orthopaedic Surgery; Visit Provider Orthopaedic Surgery Adult Reconstructive Orthopaedic Surgery
DX: Z47.1 Aftercare following joint replacement surgery (principal); Z96.651 Presence of right artificial knee joint; M17.12 Unilateral primary osteoarthritis, left knee; M25.562 Pain in left knee; M25.561 Pain in right knee; E03.9 Hypothyroidism, unspecified; I10 Essential (primary) hypertension; E11.9 Type 2 diabetes mellitus without complications; Z79.84 Long term (current) use of oral hypoglycemic drugs
CPT/HCPCS: 99213; G0463